=== PATIENT | male | born 1970 | race Caucasian/White ===

== ENCOUNTER 2018-03-25 08:11 | Day surgery (SDC) | payer OTHER ==
[~2018-03-25] VITALS: Ht 182.9 cm; Wt 103.3 kg
[2018-03-25 08:32] VITALS: BP 148/90; PULSE 66; TEMP 98.8
[2018-03-25] MEDS ORDERED: PRIL40 PO (08:34)
[2018-03-25] MEDS ORDERED: ADDERALL20 MG PO (08:34)
[2018-03-25] MEDS ORDERED: ADDERALL10 MG PO (08:39)
[2018-03-25] MEDS ORDERED: XANAX 0.5MG0.5 MG PO (08:40)
[2018-03-25 10:20] VITALS: BP 124/79; PULSE 78; TEMP 97.8
[2018-03-25 10:30] VITALS: BP 118/75; PULSE 72
[2018-03-25 10:45] VITALS: BP 117/78; PULSE 70
[2018-03-25 11:00] VITALS: BP 121/73; PULSE 66
== END 2018-03-25 11:30 | disposition home or self-care (01) ==
LOC: SDCO 08:11
DX: K21.9 Gastro-esophageal reflux disease without esophagitis (principal); R16.1 Splenomegaly, not elsewhere classified; R10.12 Left upper quadrant pain; Z12.11 Encounter for screening for malignant neoplasm of colon; K57.30 Diverticulosis of large intestine without perforation or abscess without bleeding
CPT/HCPCS: 43239; G0121; J2250; J3010; J7030

== ENCOUNTER → 2019-05-10 | Outpatient (CLI) | payer OTHER ==
[~2019-05-10] MED LIST: ADDERALL10 MG PO; ADDERALL20 MG PO; PRIL40 PO; XANAX 0.5MG0.5 MG PO
== END ==
LOC: COL.RAD 05-03 09:00
DX: S64.01XA Injury of ulnar nerve at wrist and hand level of right arm, initial encounter (principal)